=== PATIENT | male | born 1985 | race Caucasian/White ===

== ENCOUNTER 2018-08-23 06:20 | Emergency (ER) | payer SELFPAY ==
[2018-08-23 06:31] VITALS: BP 148/73; PULSE 75; RESP 16; TEMP 98.1; O2SAT 96
--- NOTE | 2018-08-23 08:05 | ED PDOC ---
HPI: Skin/Bite Injury Time Seen by Provider: 08/23/18 07:01 Chief Complaint (Nursing): Abnormal Skin Integrity History Per: Patient (Eric states that he has had rashes on his body for one month. He is concerned about ringworm. He has not seen any doctor for this. He has self treated with antibacterial ointment, hydrogen peroxide, teatree oil, and most recently Lamisil for the past 1 1/2 weeks.) Past Medical History Reviewed: Historical Data, Nursing Documentation, Vital Signs Vital Signs: Last Vital Signs Temp 98.1 F 08/23/18 06:29 Pulse 75 08/23/18 06:29 Resp 16 08/23/18 06:29 BP 148/73 08/23/18 06:29 Pulse Ox 96 08/23/18 06:29 - Medical History PMH: No Chronic Diseases - Surgical History Surgical History: No Surg Hx - Family History Family History: States: No Known Family Hx - Living Arrangements Living Arrangements: With Family - Social History Current smoker - smoking cessation education provided: No - Home Medications Home Medications: Ambulatory Orders Medication Instructions Recorded Polymyxin/Trimethoprim Sulfate 1 drop OS QID #1 bottle 01/16/15 [Polytrim Ophth Soln] Visine 15 ml 01/16/15 - Allergies Allergies/Adverse Reactions: Allergies Allergy/AdvReac Type Severity Reaction Status Date / Time No Known Allergies Allergy Unverified 01/16/15 21:14 Review of Systems ROS Statement: Except As Marked, All Systems Reviewed And Found Negative Skin: Positive for: Rash Physical Exam - Reviewed Nursing Documentation Reviewed: Yes Vital Signs Reviewed: Yes - Physical Exam Appears: Positive for: Well Skin: Positive for: Rash (One circular lesion (2x3cm) LUE with central scaling. Scattered multiple 1/4 to 1/2 cm macules in both upper extremity, chest, abdomen and back.) - ECG O2 Sat by Pulse Oximetry: 96 Disposition - Clinical Impression Clinical Impression: Rash and nonspecific skin eruption - Patient ED Disposition Is Patient to be Admitted: No Doctor Will See Patient In The: Office Counseled Patient/Family Regarding: Diagnosis, Need For Followup - Disposition Disposition: Routine/Home Disposition Time: 07:45 Condition: STABLE Additional Instructions: Please see your personal physician for a referral to dermatology. Instructions: Skin Rash - POA Present On Arrival: None
== END 2018-08-23 08:29 | disposition home or self-care (01) ==
LOC: H.ER 06:20
DX: R21 Rash and other nonspecific skin eruption (principal)